=== PATIENT | male | born 1965 | race Caucasian/White ===

== ENCOUNTER → 2021-12-27 | Outpatient (CLI) | payer MEDICARE ==
--- NOTE | 2021-12-27 09:30 | RAD ---
INDICATION: Reason: ABDOMEN PAIN / Spl. Instructions: / History: COMPARISON: December 2015 TECHNIQUE: Grayscale and color ultrasound images obtained through the abdomen. FINDINGS: Pancreas: Largely obscured Liver: Mildly echogenic. There are some solid masses within the right lobe the liver including one me asuring 40 x 39 mm with internal blood flow and appears echogenic. Additional 22 mm and 21 mm solid l esion. Gallbladder: Fold of the wall without definite stone Common Bile Duct: Not dilated. Right Kidney: No hydronephrosis. Left Kidney: No hydronephrosis. The left kidney is larger than the right. Spleen: Unremarkable. Aorta/IVC: Only partially seen secondary to overlying structures obscuring. IMPRESSION: * There are 3 echogenic solid masses within the liver. These are indeterminate in nature with both b enign causes such as hemangioma as well as higher grade neoplastic causes such as metastasis within t he differential. Further workup option would include liver protocol MRI or CT to better assess. * Liver is echogenic which can be seen with fatty infiltration. Electronically signed by: Omkar Lawson MD (12/27/2021 9:27 AM) [id number]
== END ==
LOC: US 06:42
PROVIDERS: ATTEND Family Medicine
DX: R16.0 Hepatomegaly, not elsewhere classified (principal)
CPT/HCPCS: 76700

== ENCOUNTER → 2022-01-02 | Outpatient (CLI) | payer MEDICARE ==
[~2022-01-02] MED LIST: GADOTERATE 5 MMOL/10ML VIAL. IVP ONE
--- NOTE | 2022-01-03 09:20 | KCIC ---
MRI of the abdomen without and with contrast 01/02/2022 CLINICAL HISTORY: Indeterminate mass lesions seen on recent ultrasound of the abdomen. TECHNIQUE: Unenhanced fat saturated T1-weighted axial, diffusion-weighted axial, T2-weighted axial an d in and out of phase T1-weighted axial images along with fat saturated T2-weighted axial and coronal images of the abdomen were obtained. After the dynamic intravenous administration of 20 cc of Yesy can, enhanced fat saturated T1-weighted axial images of the abdomen were obtained. FINDINGS: Comparison is made to the patient's ultrasound of the abdomen dated 12/27/2021. Approximately 14 masses are seen scattered throughout both lobes of the liver. These measure 3 mm to 3.7 cm in size. They demonstrate decreased signal intensity on the T1-weighted images and slightly in creased signal intensity on the T2-weighted images. They demonstrate ring enhancement on the postcont rast images and are felt to most likely represent hepatic metastases. The spleen, pancreas, adrenal glands and kidneys are within normal limits. The abdominal aorta tapers normally. The gallbladder slightly contracted. No free fluid is seen. Ther e is no evidence of bowel obstruction. The marrow signal of the visualized bony structures is within normal limits. IMPRESSION: Multiple mass lesions are seen scattered throughout both lobes of the liver which are con cerning for hepatic metastasis as discussed above. Electronically signed by: Taz La MD (01/03/2022 9:18 AM) [id number]
== END ==
LOC: KCIC MRI 14:54
PROVIDERS: ATTEND Family Medicine
DX: R16.0 Hepatomegaly, not elsewhere classified (principal)
CPT/HCPCS: 74183; A9575